=== PATIENT | female | born 2005 | race Caucasian/White ===

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

== ENCOUNTER 2024-12-19 11:08 | Emergency (ER) | payer BC, SELFPAY ==
[2024-12-19 11:16] VITALS: BP 112/58; PULSE 64; RESP 18; TEMP 36.4; O2SAT 97
--- NOTE | 2024-12-19 11:40 | ED.EAR ---
HPI - Ear Problem General Chief complaint: Ear Stated complaint: shooting pain in ear Source: patient Mode of arrival: ambulatory Limitations: no limitations History of Present Illness HPI Narrative: Patient presents for evaluation of left-sided ear pain. Symptom onset within the past few days. She has muffled hearing on that side. No tinnitus or drainage from the ear. No fever, chills, nausea, vomiting, cough or SOB. She did have influenza last week but the majority of those symptoms have resolved. Related Data Home Medications ?Medication ?Instructions ?Recorded ?Confirmed ?Last Taken ?Type etonogestrel 68 mg subdermal 1 implant subdermal ONCE 04/17/24 09/09/24 Unknown History implant (Nexplanon) Allergies Allergy/AdvReac Type Severity Reaction Status Date / Time No Known Allergies Allergy Verified 12/19/24 11:16 Review of Systems Review of Systems: CONSTITUTIONAL: Denies fever, chills, or sweats. EYES: Denies visual changes, redness, or discharge. ENT: Reports left sided ear pain and muffled hearing on the left. Denies tinnitus or drainage from the ear. Denies rhinorrhea, congestion, sore throat CARDIOVASCULAR: Denies chest pain, palpitations, or edema. RESPIRATORY: Denies cough or dyspnea. GASTROINTESTINAL: Denies abdominal pain, nausea, vomiting, or diarrhea. GENITOURINARY: Denies dysuria or hematuria. SKIN: Denies rash or itching. MUSCULOSKELETAL: Denies back pain, joint pain, or myalgia. NEUROLOGIC: Denies headache, numbness, dizziness, or weakness. PSYCHIATRIC: Denies anxiety or depression. [facility] Past Medical History Medical History Psoriasis Exposure to sexually transmitted disease (STD) Depression Anxiety Surgical History Surgical History H/O gynecological procedure Nexplanon insertion 02/22/2021 Family History Family History Grandparent Cerebrovascular accident Mother Cerebrovascular accident Social History Social History Smoking status: Current some day smoker Tobacco type: e-cigarettes/vaping Second hand tobacco smoke exposure: No Alcohol intake: current Substance use: current Substance use type: marijuana Other substance usage details: rare Do You Feel Safe in your Home?: Yes Lack of Transportation: No Lack of Food: Never True Current Housing: Decline to Answer Concerned About Future Housing: Decline to Answer Difficulty Paying Gas/Electric Bills: Decline to Answer Difficulty Paying for Meds: Decline to Answer Currently Unemployed: Decline to Answer Education: Decline to Answer Difficulty w/ Childcare or Family Care: Decline to Answer Living arrangements: with family Occupation/Education: occupation Gender identity (if verbalized by the patient): Female Exam Narrative: GENERAL: Well-appearing, well-nourished, and in no acute distress. HEAD: Normocephalic, atraumatic. EYES: PERRLA and EOMI. ENT: Nares clear, no rhinorrhea or epistaxis. Mucous membranes moist. Oropharynx without tonsillar hypertrophy exudate or other lesions. There is green exudate in left ear canal HEART: Regular rate and rhythm. No murmur heard. Normal peripheral pulses. ABDOMEN: Soft, nontender, nondistended, normal active bowel sounds. EXTREMITIES: Normal range of motion. No edema. SKIN: Warm, dry, no rash. NEURO: No focal deficits. Alert and oriented x3. PSYCH: Normal mood and affect. Course Course Emergency Course: this is a 19-year-old female who presented for evaluation of left-sided ear pain. She initially had some purulent drainage in the left ear canal. I irrigated with half-strength hydrogen peroxide and water. left tympanic membrane was markedly erythematous. She has evidence of otitis media. I cannot definitively say whether she has a perforation in the tympanic membrane. Will dc with augmentin and ofloxacin. follow-up with primary provider. Go to the ER for worsening symptoms. Patient in agreement with plan of care. Level of Care: Express Care Visit Vital Signs Vital signs: Vital Signs Temperature 36.4 C L 12/19/24 11:16 Pulse Rate 64 12/19/24 11:16 Respiratory Rate 18 12/19/24 11:16 Blood Pressure 112/58 L 12/19/24 11:16 Pulse Oximetry 97 12/19/24 11:16 Oxygen Delivery Room Air 12/19/24 11:16 Temperature 36.4 C L 12/19/24 11:16 Pulse Rate 64 12/19/24 11:16 Respiratory Rate 18 12/19/24 11:16 Blood Pressure 112/58 L 12/19/24 11:16 Pulse Oximetry 97 12/19/24 11:16 Oxygen Delivery Room Air 12/19/24 11:16 Medical Decision Making Vital Signs Vital Signs: Vital Signs Temperature 36.4 C L 12/19/24 11:16 Pulse Rate 64 12/19/24 11:16 Respiratory Rate 18 12/19/24 11:16 Blood Pressure 112/58 L 12/19/24 11:16 Pulse Oximetry 97 12/19/24 11:16 Oxygen Delivery Room Air 12/19/24 11:16 Temperature 36.4 C L 12/19/24 11:16 Pulse Rate 64 12/19/24 11:16 Respiratory Rate 18 12/19/24 11:16 Blood Pressure 112/58 L 12/19/24 11:16 Pulse Oximetry 97 12/19/24 11:16 Oxygen Delivery Room Air 12/19/24 11:16 Discharge Plan Discharge Clinical Impression: Otitis media Patient Disposition: Home, Self-Care Condition: Stable Instructions: Antibiotic Form, Ear Infection (ED) Patient Language: Lithuanian Prescriptions: New amoxicillin-pot clavulanate 875-125 mg tablet 1 tablet PO Q12H Qty: 20 0RF ofloxacin 0.3 % drops 10 drp EACH EAR DAILY 7 Days Qty: 10 0RF No Action Nexplanon 68 mg implant 1 implant subdermal ONCE Rx Instructions: as a single dose Follow-up/Referrals: Joshua Daigle MD [Primary Care Provider] - Time of Disposition: 11:35
== END 2024-12-19 11:38 | disposition home or self-care (01) ==
PROVIDERS: Emergency Provider Nurse Practitioner; PCP Internal Medicine
DX: H66.92 Otitis media, unspecified, left ear (principal); F17.290 Nicotine dependence, other tobacco product, uncomplicated; L40.9 Psoriasis, unspecified
CPT/HCPCS: 99213; G0463

== ENCOUNTER 2025-08-25 09:55 | Outpatient (CLI) | payer OTHER, SELFPAY ==
--- NOTE | 2025-09-14 15:16 | WPDHOLTEREM ---
Holter/Event Monitor Holter/Event Monitor Date of procedure: 08/25/25 Holter/Event Procedure: Event Monitor Indications: Palpitations Conclusion: 1. 11 days event monitor on 08/25/25. 2. Underlying rhythm is sinus rhythm. HR range 38-151 bpm; average HR 76 bpm. 3. There are rare premature supraventricular complexes. No supraventricular tachycardia. 4. There are rare premature ventricular complexes. No ventricular tachycardia. 5. No significant pauses greater than 3 seconds. 6. Patient reports 4 episodes of symptoms of lightheadedness, flutter, irregular beats, shortness of breath which demonstrate sinus rhythm, HR range 63-104 bpm.
== END 2025-08-25 09:56 | disposition home or self-care (01) ==
LOC: CHSCARD 10:00
PROVIDERS: PCP Internal Medicine; Visit Provider Internal Medicine
DX: R00.2 Palpitations (principal); R55 Syncope and collapse
CPT/HCPCS: 93246